=== PATIENT | female | born 1990 | race Two or more races ===

== ENCOUNTER 2017-01-22 12:43 | Inpatient (IN) | payer BC, MEDICAID ==
[~2017-01-22] VITALS: Ht 160 cm; Wt 101.8 kg
[~2017-01-22 12:43] MED LIST: ACET325T14 PO
[2017-01-22] MEDS ORDERED: OXYTOCIN 30U/ 0.9% NaCL 500ML 500 ML IV ONE (12:58)
[2017-01-22] MEDS ORDERED: FENTANYL PF 100 MCG/2ML IV PRN (13:00)
[2017-01-22] MEDS ORDERED: CALCIUM CARBONATE 500 MG TAB.CHEW PO PRN (13:00)
[2017-01-22 13:09] VITALS: BP 101/69
[2017-01-22] MEDS ORDERED: PLEASE ENTER HEIGHT AND WEIGHT MC SCH (13:30)
[2017-01-22] MEDS ORDERED: OXYTOCIN 30U/ 0.9% NaCL 500ML 500 ML ONE (14:59)
[2017-01-22] MEDS ORDERED: NEWBORN KIT ONE (14:59)
[2017-01-22] MEDS ORDERED: LIDOCAINE 1%, 20ML ONE (14:59)
[2017-01-22] MEDS ORDERED: MISOPROSTOL 200 MCG TABLET ONE (14:59)
[2017-01-22] MEDS ORDERED: FENTANYL PF 100 MCG/2ML ONE ×2 (17:07→22:57)
[2017-01-22] MEDS: FENTANYL PF 100 MCG/2ML IVPush PRN ×2 (17:09→23:00)
[2017-01-22] MEDS ORDERED: ZOLPIDEM 5MG TABLET ONE (21:54)
[2017-01-22] MEDS: ZOLPIDEM 5MG TABLET PO SCH (21:56)
[2017-01-23] MEDS: LACTATED RINGERS 1,000 ML IV SCH ×4 (02:46→20:58)
[2017-01-23] MEDS ORDERED: FENTANYL PF 100 MCG/2ML ONE ×3 (03:10→21:41)
[2017-01-23] MEDS: FENTANYL PF 100 MCG/2ML IVPush PRN ×2 (03:13→21:43)
[2017-01-23] MEDS ORDERED: OXYTOCIN 30U/ 0.9% NaCL 500ML 500 ML IV PRN (05:00)
[2017-01-23] MEDS ORDERED: FENTANYL/BUPIV./NS/PF 250 ML EPIDCONT ONE (09:08)
[2017-01-23] MEDS ORDERED: FENTANYL/BUPIV./NS/PF 250 ML EPIDCONT SCH (10:00)
[2017-01-23] MEDS ORDERED: LACTATED RINGERS 1,000 ML IVBOLUS PRN (10:00)
[2017-01-23] MEDS ORDERED: LACTATED RINGERS 1,000 ML IV SCH (10:00)
[2017-01-23] MEDS ORDERED: ONDANSETRON 2MG/ML, 2ML ONE (15:54)
[2017-01-23] MEDS ORDERED: ONDANSETRON 2MG/ML, 2ML IVPush PRN (16:00)
[2017-01-23] MEDS: D5%-LACTATED RINGERS 1,000 ML IV SCH ×2 (16:22→20:58)
[2017-01-23] MEDS: ZOLPIDEM 5MG TABLET PO SCH (21:00)
[2017-01-23] MEDS: OXYTOCIN 30U/ 0.9% NaCL 500ML 500 ML IV SCH (22:12)
[2017-01-23] MEDS ORDERED: MISOPROSTOL 200 MCG TABLET PR PRN (22:30)
[2017-01-23] MEDS ORDERED: OXYTOCIN 10 UNITS/ML, 1ML IM PRN (22:30)
[2017-01-23] MEDS ORDERED: ONDANSETRON 2MG/ML, 2ML IV PRN (22:30)
[2017-01-23] MEDS ORDERED: OXYcodone/APAP 5/325MG TABLET PO PRN (22:30)
[2017-01-23] MEDS ORDERED: ACETAMINOPHEN 325 MG TABLET PO PRN ×2 (22:30)
[2017-01-23] MEDS ORDERED: BISACODYL 10 MG SUPP PR PRN (22:30)
[2017-01-23] MEDS ORDERED: CALCIUM CARBONATE 500 MG TAB.CHEW PO PRN (22:30)
[2017-01-23] MEDS ORDERED: MAGNESIUM HYDROXIDE 8%, 30ML UDC PO PRN (22:30)
[2017-01-23] MEDS ORDERED: MEASLES,MUMPS&RUBELLA VACC/PF 0.5 ML SQ PRN (22:30)
[2017-01-23] MEDS ORDERED: GLYCERIN ADULT SUPP PR PRN (22:30)
[2017-01-23] MEDS ORDERED: METHYLERGONOVINE 0.2 MG/ML IM PRN (22:30)
[2017-01-23] MEDS ORDERED: DIPH,PERTUSS(ACELL),TET VAC/PF NC IM-VACC PRN (22:30)
[2017-01-24 00:35] VITALS: BP 108/61
[2017-01-24] MEDS ORDERED: IBUP800T PO (04:25)
[2017-01-24] MEDS ORDERED: OXYC-302 PO (04:29)
[2017-01-24 05:30] VITALS: BP 108/65
[2017-01-24] MEDS: IBUPROFEN 800 MG TABLET PO PRN ×2 (05:46→16:39)
[2017-01-24] MEDS ORDERED: PRENATAL VIT/IRON/FA 1 EACH TABLET ONE (07:45)
[2017-01-24] MEDS: DOCUSATE 100 MG CAPSULE PO PRN ×2 (07:56→22:26)
[2017-01-24] MEDS: PRENATAL VIT/IRON/FA 1 EACH TABLET PO SCH (07:56)
[2017-01-24 08:00] VITALS: BP 113/71
[2017-01-24] MEDS: OXYTOCIN 30U/ 0.9% NaCL 500ML 500 ML IV SCH ×2 (08:12→18:12)
[2017-01-24] MEDS: OXYcodone/APAP 5/325MG TABLET PO PRN ×2 (12:14→22:26)
[2017-01-24 16:35] VITALS: BP 101/65
[2017-01-24 20:45] VITALS: BP 113/75
[2017-01-24] MEDS: ZOLPIDEM 5MG TABLET PO SCH (21:00)
[2017-01-25] MEDS: OXYTOCIN 30U/ 0.9% NaCL 500ML 500 ML IV SCH ×2 (04:12→14:12)
[2017-01-25] MEDS: PRENATAL VIT/IRON/FA 1 EACH TABLET PO SCH (09:56)
[2017-01-25] MEDS: IBUPROFEN 800 MG TABLET PO PRN (09:56)
[2017-01-25] MEDS: DOCUSATE 100 MG CAPSULE PO PRN (09:56)
[2017-01-25 10:00] VITALS: BP 111/72
== END 2017-01-25 16:53 | disposition home or self-care (01) | DRG 775 ==
LOC: LDIP 12:43 → 2NW 01-24 00:20
PROVIDERS: ADMIT Obstetrics & Gynecology; ATTEND Obstetrics & Gynecology
PROC: 10E0XZZ Delivery of Products of Conception, External Approach (ICD-10-PCS; principal; 2017-01-23)
PROC: 00HU33Z Insertion of Infusion Device into Spinal Canal, Percutaneous Approach (ICD-10-PCS; 2017-01-23)
PROC: 3E0R3CZ (ICD-10-PCS; 2017-01-23)
PROC: 10907ZC Drainage of Amniotic Fluid, Therapeutic from Products of Conception, Via Natural or Artificial Opening (ICD-10-PCS; 2017-01-23)
DX: O41.03X0 Oligohydramnios, third trimester, not applicable or unspecified (principal); O99.52 Diseases of the respiratory system complicating childbirth; J45.909 Unspecified asthma, uncomplicated; O62.2 Other uterine inertia; Z37.0 Single live birth; Z3A.39 39 weeks gestation of pregnancy
CPT/HCPCS: 36415; 85025; 86850; 86900; J2405; J3010; J2590; J7120; J7121

== ENCOUNTER 2017-02-22 12:53 | Emergency (ER) | payer BC, MEDICAID ==
[~2017-02-22] VITALS: Ht 152.4 cm; Wt 94.8 kg
[~2017-02-22 12:53] MED LIST changes: +IBUP800T PO; +OXYC-302 PO
[2017-02-22 13:06] VITALS: BP 121/80
[2017-02-22] MEDS ORDERED: HYDROmorphone 1 MG/ML, 1ML ONE (15:29)
[2017-02-22] MEDS ORDERED: ONDANSETRON 2MG/ML, 2ML IVPush ONE (15:30)
[2017-02-22] MEDS ORDERED: HYDROmorphone 1 MG/ML, 1ML IVPush PRN (15:30)
[2017-02-22] MEDS ORDERED: ONDANSETRON 2MG/ML, 2ML ONE (15:30)
[2017-02-22 16:00] LABS: PATH.CAST-FLAG NOT PRESENT; SPERM-FLAG NOT PRESENT; SRC-FLAG NOT PRESENT; XTAL-FLAG NOT PRESENT; YLC-FLAG NOT PRESENT
[2017-02-22 16:01] LABS: ASPARTATE AMINO TRANSFERASE 76 U/L (15-37); BLOOD UREA NITROGEN 15 mg/dL (7-18)
[2017-02-22] MEDS ORDERED: PROPOFOL 10 MG/ML, 20ML IVPush ONE (16:30)
[2017-02-22] MEDS ORDERED: PROPOFOL 10 MG/ML, 20ML ONE (16:45)
== END 2017-02-22 19:00 | disposition home or self-care (01) ==
LOC: ED 14:56
DX: K43.9 Ventral hernia without obstruction or gangrene (principal); K42.9 Umbilical hernia without obstruction or gangrene; N30.00 Acute cystitis without hematuria
CPT/HCPCS: 36415; 74020; 80053; 81001; 83690; 84703; 85025; 87086; 96374; 96375; 99152; 99285; J1170; J2405; J2704

== ENCOUNTER 2017-03-15 06:15 | Observation (INO) | payer MEDICAID ==
[~2017-03-15] VITALS: Ht 160 cm; Wt 100.0 kg
[2017-03-15 06:44] VITALS: BP 106/68
[2017-03-15] MEDS ORDERED: LACTATED RINGERS 1,000 ML IV SCH ×2 (06:46→07:47)
[2017-03-15] MEDS ORDERED: BUPIVACAINE/PF-EPI 0.5% 1:200K ONE ×2 (07:25→09:12)
[2017-03-15] MEDS ORDERED: MIDAZOLAM 1 MG/ML, 2ML ONE (07:40)
[2017-03-15] MEDS ORDERED: FENTANYL PF 250 MCG/5ML ONE (07:40)
[2017-03-15] MEDS ORDERED: BUPIVACAINE/PF-EPI 0.5% 1:200K INFIL ONE (08:00)
[2017-03-15 08:02] LABS: HCG UR OBC PASS
[2017-03-15] MEDS ORDERED: KETOROLAC 30 MG/1 ML ONE (08:02)
[2017-03-15] MEDS ORDERED: PROPOFOL 10 MG/ML, 20ML ONE (08:02)
[2017-03-15] MEDS ORDERED: ROCURONIUM 10 MG/ML ONE (08:02)
[2017-03-15] MEDS ORDERED: CEFAZOLIN 1,000 MG ONE (08:02)
[2017-03-15] MEDS ORDERED: SUCCINYLCHOLINE 20 MG/ML, 10ML ONE (08:02)
[2017-03-15] MEDS ORDERED: ONDANSETRON 2MG/ML, 2ML ONE (08:02)
[2017-03-15] MEDS ORDERED: DEXAMETHASONE 4 MG/ML, 1ML ONE (08:02)
[2017-03-15] MEDS ORDERED: HYDROmorphone 1 MG/ML, 1ML IV PRN (08:30)
[2017-03-15] MEDS ORDERED: MEPERIDINE/PF 25MG/0.5ML IVPush PRN (08:30)
[2017-03-15] MEDS ORDERED: ACETAMINOPHEN 325 MG TABLET PO PRN (08:30)
[2017-03-15] MEDS ORDERED: PROMETHAZINE 25 MG/ML, 1ML IV PRN (08:30)
[2017-03-15] MEDS ORDERED: OXYcodone 5 MG/5 ML ORAL.SOL UDC PO PRN (08:30)
[2017-03-15] MEDS ORDERED: hydrALAzine 20 MG/ML, 1ML IV PRN (08:30)
[2017-03-15] MEDS ORDERED: ONDANSETRON 2MG/ML, 2ML IVPush PRN ×2 (08:30→09:30)
[2017-03-15] MEDS ORDERED: LABETALOL 5MG/ML, 20ML IV PRN (08:30)
[2017-03-15] MEDS ORDERED: ALBUTEROL SULFATE 2.5 MG/3 ML NPPB PRN (08:30)
[2017-03-15] MEDS ORDERED: MIDAZOLAM 1 MG/ML, 2ML IV PRN (08:30)
[2017-03-15] MEDS ORDERED: FENTANYL PF 100 MCG/2ML ONE ×2 (09:01→09:23)
[2017-03-15] MEDS: LACTATED RINGERS 1,000 ML IV SCH ×2 (09:09→19:09)
[2017-03-15] MEDS ORDERED: OXYcodone 5 MG/5 ML ORAL.SOL UDC ONE (09:23)
[2017-03-15] MEDS ORDERED: ACETAMINOPHEN 325 MG TABLET ONE (09:23)
[2017-03-15] MEDS ORDERED: ACETAMINOPHEN 650 MG/20.3 ML UDC ONE (09:23)
[2017-03-15] MEDS ORDERED: PROMETHAZINE 25 MG/ML, 1ML IM PRN (09:30)
[2017-03-15] MEDS: FENTANYL PF 100 MCG/2ML IV PRN ×2 (09:30→09:40)
[2017-03-15] MEDS ORDERED: MEPERIDINE/PF 25MG/0.5ML ONE (09:54)
[2017-03-15] MEDS ORDERED: MORPHINE SULFATE 4 MG/ML, 1ML ONE ×2 (11:30→12:26)
[2017-03-15] MEDS: morphine SULFATE 10 MG/ML, 1ML IVPush PRN ×3 (11:30→12:45)
[2017-03-15] MEDS ORDERED: DIAZEPAM 5 MG/ML, 2ML ONE (13:06)
[2017-03-15] MEDS ORDERED: OXYcodone/APAP 7.5/325MG TABLET ONE (13:29)
[2017-03-15] MEDS ORDERED: OXYcodone/APAP 7.5/325MG TABLET PO PRN (13:30)
[2017-03-15] MEDS ORDERED: ONDANSETRON 4 MG TABLET PO PRN ×2 (13:30→13:59)
[2017-03-15] MEDS ORDERED: DIAZEPAM 5 MG/ML, 2ML IV ONE (14:00)
[2017-03-15] MEDS ORDERED: HYDROmorphone 2 MG/ML, 1ML ONE (15:41)
[2017-03-15] MEDS: HYDROmorphone 1 MG/ML, 1ML IV PRN (17:42)
[2017-03-15 18:54] VITALS: BP 114/68
[2017-03-15] MEDS: IBUPROFEN 600 MG TABLET PO PRN (19:57)
[2017-03-15] MEDS: D5%-0.45NACL+KCL 20MEQ 1,000 ML IV SCH (19:57)
[2017-03-15] MEDS: OXYcodone/APAP 7.5/325MG TABLET PO PRN (19:57)
[2017-03-16 00:45] VITALS: BP 99/57
[2017-03-16] MEDS: OXYcodone/APAP 7.5/325MG TABLET PO PRN ×4 (01:08→19:07)
[2017-03-16] MEDS: IBUPROFEN 600 MG TABLET PO PRN ×3 (04:04→20:32)
[2017-03-16 04:19] VITALS: BP 100/55
[2017-03-16] MEDS: LACTATED RINGERS 1,000 ML IV SCH ×2 (05:09→15:09)
[2017-03-16] MEDS: D5%-0.45NACL+KCL 20MEQ 1,000 ML IV SCH ×2 (09:00→22:20)
[2017-03-16 09:04] VITALS: BP 103/58
[2017-03-16] MEDS: HYDROmorphone 1 MG/ML, 1ML IV PRN (09:09)
[2017-03-16 16:23] VITALS: BP 92/51
[2017-03-16 19:15] VITALS: BP 98/53
[2017-03-16 21:42] VITALS: BP 99/52
[2017-03-17] MEDS: OXYcodone/APAP 7.5/325MG TABLET PO PRN ×2 (01:07→09:17)
[2017-03-17] MEDS: LACTATED RINGERS 1,000 ML IV SCH ×2 (01:09→11:09)
[2017-03-17 03:38] VITALS: BP 100/56
[2017-03-17] MEDS: IBUPROFEN 600 MG TABLET PO PRN ×2 (03:50→12:57)
[2017-03-17 08:33] VITALS: BP 98/59
[2017-03-17] MEDS ORDERED: OXYC-223 PO (11:27)
[2017-03-17] MEDS ORDERED: ONDA4TAB7 PO (11:27)
[2017-03-17 13:02] VITALS: BP 91/52
== END 2017-03-17 13:10 | disposition home or self-care (01) ==
LOC: OUT 06:15 → 4NOR 17:20 → OUT 22:59 → 4NOR 23:00
PROVIDERS: ADMIT Surgery; ATTEND Surgery
DX: K43.9 Ventral hernia without obstruction or gangrene (principal); J45.909 Unspecified asthma, uncomplicated
CPT/HCPCS: 49560; 49568; 81025; 96374; 96375; 96376; C1781; G0378; J0330; J0690; J1100; J1170; J1885; J2175; J2250; J2270; J2405; J2704; J3010; J3360; J3480; J7120

== ENCOUNTER 2017-06-08 23:33 | Emergency (ER) | payer MEDICAID ==
[~2017-06-08] VITALS: Ht 160 cm; Wt 99.6 kg
[~2017-06-08 23:33] MED LIST changes: +IBUP-1223 PO; -IBUP800T PO; +ONDA4TAB7 PO; +OXYC-306 PO
[2017-06-09 01:29] LABS: HEMATOCRIT 39.4 % (34.6-47.8); HEMOGLOBIN 13.3 g/dL (11.7-16.4); WHITE BLOOD COUNT 9.7 x10^3/uL (3.4-10)
[2017-06-09 02:24] VITALS: BP 108/76
== END 2017-06-09 02:27 | disposition home or self-care (01) ==
LOC: ED 06-09 00:20
DX: O20.0 Threatened abortion (principal); Z87.891 Personal history of nicotine dependence; Z3A.14 14 weeks gestation of pregnancy
CPT/HCPCS: 36415; 76801; 81001; 84702; 85025; 86901; 99285

== ENCOUNTER 2017-12-06 05:43 | Inpatient (IN) | payer MEDICAID ==
[~2017-12-06] VITALS: Ht 160 cm; Wt 109.0 kg
[2017-12-06] MEDS ORDERED: D5%-LACTATED RINGERS 1,000 ML IV SCH (05:46)
[2017-12-06] MEDS ORDERED: OXYTOCIN 30U/ 0.9% NaCL 500ML 500 ML IV ONE (05:46)
[2017-12-06] MEDS ORDERED: OXYTOCIN 30U/ 0.9% NaCL 500ML 500 ML IV PRN (05:46)
[2017-12-06] MEDS ORDERED: FENTANYL PF 100 MCG/2ML IVPush PRN (06:00)
[2017-12-06] MEDS ORDERED: FENTANYL PF 100 MCG/2ML IV PRN (06:00)
[2017-12-06] MEDS ORDERED: ONDANSETRON 2MG/ML, 2ML IVPush PRN (06:00)
[2017-12-06] MEDS ORDERED: CALCIUM CARBONATE 500 MG TAB.CHEW PO PRN ×2 (06:00→08:00)
[2017-12-06 06:08] VITALS: BP 115/59
[2017-12-06 06:10] LABS: BASOPHILS # (AUTO) 0.03 x10^3/uL (0-0.1); BASOPHILS % (AUTO) 0 % (0-1); EOSINOPHILS # (AUTO) 0.05 x10^3/uL (0-0.4); EOSINOPHILS % (AUTO) 1 % (1-7); LYMPHOCYTES # (AUTO) 1.63 x10^3/uL (1-3.4); LYMPHOCYTES % (AUTO) 21 % (22-44); MD NO; MEAN CORPUSCULAR HEMOGLOBIN 26.2 pg (27.0-34.8); MEAN CORPUSCULAR VOLUME 79.4 fL (80-100); MEAN PLATELET VOLUME 9.3 fL (7.4-10.4); MONOCYTES # (AUTO) 0.47 x10^3/uL (0.2-0.8); MONOCYTES % (AUTO) 6 % (2-9); NEUTROPHILS # (AUTO) 5.63 x10^3/uL (1.8-6.8); NEUTROPHILS % (AUTO) 72 % (42-75); PLATELET COUNT 267 x10^3/uL (130-400); RED BLOOD COUNT 4.26 x10^6/uL (3.82-5.3); RED CELL DISTRIBUTION WIDTH 15.4 % (9.6-15.2)
[2017-12-06] MEDS: LACTATED RINGERS 1,000 ML IV SCH ×3 (06:19→09:31)
[2017-12-06] MEDS ORDERED: OXYTOCIN 30U/ 0.9% NaCL 500ML 500 ML ONE ×2 (06:24→17:09)
[2017-12-06] MEDS ORDERED: MISOPROSTOL 200 MCG TABLET ONE (06:25)
[2017-12-06] MEDS ORDERED: LIDOCAINE-MPF 1%, 5ML ONE (06:25)
[2017-12-06] MEDS ORDERED: NEWBORN KIT ONE (06:26)
[2017-12-06] MEDS: OXYTOCIN 30U/ 0.9% NaCL 500ML 500 ML IV SCH ×3 (07:59→23:58)
[2017-12-06] MEDS ORDERED: ONDANSETRON 2MG/ML, 2ML IV PRN (08:00)
[2017-12-06] MEDS ORDERED: MEASLES,MUMPS&RUBELLA VACC/PF 0.5 ML SQ PRN (08:00)
[2017-12-06] MEDS ORDERED: ACETAMINOPHEN 325 MG TABLET PO PRN ×2 (08:00)
[2017-12-06] MEDS ORDERED: MAGNESIUM HYDROXIDE 8%, 30ML UDC PO PRN (08:00)
[2017-12-06] MEDS ORDERED: OXYcodone/APAP 5/325MG TABLET PO PRN (08:00)
[2017-12-06] MEDS ORDERED: MISOPROSTOL 200 MCG TABLET PR PRN (08:00)
[2017-12-06] MEDS: PRENATAL VIT/IRON/FA 1 EACH TABLET PO SCH (09:00)
[2017-12-06] MEDS ORDERED: BUPIVACAINE 0.25% ONE (09:29)
[2017-12-06] MEDS ORDERED: FENTANYL/BUPIV./NS/PF 250 ML EPIDCONT ONE (09:30)
[2017-12-06] MEDS ORDERED: FENTANYL/BUPIV./NS/PF 250 ML EPIDCONT SCH (09:53)
[2017-12-06] MEDS ORDERED: LACTATED RINGERS 1,000 ML IV SCH (09:53)
[2017-12-06] MEDS ORDERED: EPHEDRINE 50 MG/ML, 1ML IVPush PRN (10:00)
[2017-12-06] MEDS ORDERED: LACTATED RINGERS 1,000 ML IVBOLUS PRN (10:00)
[2017-12-06] MEDS ORDERED: IBUPROFEN 600 MG TABLET ONE (19:22)
[2017-12-06] MEDS: IBUPROFEN 600 MG TABLET PO PRN (19:23)
[2017-12-06 19:50] VITALS: BP 102/63
[2017-12-06] MEDS: DOCUSATE 100 MG CAPSULE PO PRN (21:18)
[2017-12-06] MEDS: OXYcodone/APAP 5/325MG TABLET PO PRN (21:19)
[2017-12-07 00:20] VITALS: BP 108/69
[2017-12-07] MEDS: IBUPROFEN 600 MG TABLET PO PRN ×2 (01:33→07:32)
[2017-12-07] MEDS: OXYcodone/APAP 5/325MG TABLET PO PRN ×3 (01:33→12:47)
[2017-12-07 01:34] LABS: BASOPHILS # (AUTO) 0.04 x10^3/uL (0-0.1); BASOPHILS % (AUTO) 1 % (0-1); EOSINOPHILS # (AUTO) 0.07 x10^3/uL (0-0.4); EOSINOPHILS % (AUTO) 1 % (1-7); LYMPHOCYTES # (AUTO) 1.82 x10^3/uL (1-3.4); LYMPHOCYTES % (AUTO) 21 % (22-44); MD NO; MEAN CORPUSCULAR HEMOGLOBIN 25.9 pg (27.0-34.8); MEAN CORPUSCULAR VOLUME 78.6 fL (80-100); MEAN PLATELET VOLUME 9.2 fL (7.4-10.4); MONOCYTES # (AUTO) 0.41 x10^3/uL (0.2-0.8); MONOCYTES % (AUTO) 5 % (2-9); NEUTROPHILS # (AUTO) 6.42 x10^3/uL (1.8-6.8); NEUTROPHILS % (AUTO) 73 % (42-75); PLATELET COUNT 224 x10^3/uL (130-400); RED BLOOD COUNT 3.84 x10^6/uL (3.82-5.3); RED CELL DISTRIBUTION WIDTH 15.5 % (9.6-15.2)
[2017-12-07] MEDS: DOCUSATE 100 MG CAPSULE PO PRN (07:32)
[2017-12-07] MEDS: PRENATAL VIT/IRON/FA 1 EACH TABLET PO SCH (07:32)
[2017-12-07 09:15] VITALS: BP 110/62
[2017-12-07 12:00] VITALS: BP 117/67
[2017-12-07] MEDS ORDERED: KETOROLAC 30 MG/1 ML IM ONE (13:00)
[2017-12-07] MEDS ORDERED: KETOROLAC 30 MG/1 ML ONE (13:06)
[2017-12-07] MEDS ORDERED: IBUP-1222 PO (16:30)
== END 2017-12-07 17:59 | disposition home or self-care (01) | DRG 775 ==
LOC: LDIP 05:43 → 2NW 19:39
PROVIDERS: ADMIT Obstetrics & Gynecology; ATTEND Obstetrics & Gynecology
PROC: 10E0XZZ Delivery of Products of Conception, External Approach (ICD-10-PCS; principal; 2017-12-06)
PROC: 3E0R3BZ Introduction of Anesthetic Agent into Spinal Canal, Percutaneous Approach (ICD-10-PCS; 2017-12-06)
PROC: 00HU33Z Insertion of Infusion Device into Spinal Canal, Percutaneous Approach (ICD-10-PCS; 2017-12-06)
PROC: 10907ZC Drainage of Amniotic Fluid, Therapeutic from Products of Conception, Via Natural or Artificial Opening (ICD-10-PCS; 2017-12-06)
DX: O80 Encounter for full-term uncomplicated delivery (principal); Z37.0 Single live birth; Z3A.39 39 weeks gestation of pregnancy
CPT/HCPCS: 36415; 85025; 86850; 86900; J1885; J2590; J7120

== ENCOUNTER 2018-10-06 01:12 | Emergency (ER) | payer MEDICAID ==
[~2018-10-06] VITALS: Ht 160 cm; Wt 107.2 kg
[~2018-10-06 01:12] MED LIST changes: +IBUP-1222 PO
--- NOTE | 2018-10-06 01:29 | NUR ---
pt presented with c/o n/v since 2199 today, also c/o abd luq and mid back pain, lnmp-09/26/18. denies temp or injury. monitors applied, sidrails up x2, provided pt with warm blanket, call light within reach. awaiting erp for eval and orders
[2018-10-06] MEDS ORDERED: ONDANSETRON 2MG/ML, 2ML ONE (01:41)
[2018-10-06] MEDS ORDERED: MORPHINE SULFATE 4 MG/ML, 1ML ONE ×2 (01:41→03:10)
--- NOTE | 2018-10-06 01:47 | NUR ---
PT TO XRAY. URINE SAMPLE SENT.
[2018-10-06] MEDS: MORPHINE SULFATE 4 MG/ML, 1ML IVPush PRN ×2 (01:55→03:12)
--- NOTE | 2018-10-06 01:57 | NUR ---
IV SITE STARTED, LABS DRAWN AND SENT, PT MEDICATED PER MAR
[2018-10-06 02:00] LABS: HCG UR SG 1.019 (1.003-1.030); MICROSCOPIC NOT IND
[2018-10-06] MEDS ORDERED: ONDANSETRON 2MG/ML, 2ML IVPush ONE (02:00)
[2018-10-06 02:05] LABS: CULTURE INDICATED? NO
[2018-10-06 02:14] LABS: BASOPHILS # (AUTO) 0.04 x10^3/uL (0-0.1); BASOPHILS % (AUTO) 1 % (0-1); EOSINOPHILS # (AUTO) 0.11 x10^3/uL (0-0.4); EOSINOPHILS % (AUTO) 1 % (1-7); LYMPHOCYTES # (AUTO) 2.49 x10^3/uL (1-3.4); LYMPHOCYTES % (AUTO) 28 % (22-44); MD NO; MEAN CORPUSCULAR HEMOGLOBIN 27.9 pg (27.0-34.8); MEAN CORPUSCULAR HGB CONC 33.6 g/dL (32.4-35.8); MEAN CORPUSCULAR VOLUME 83.1 fL (80-100); MEAN PLATELET VOLUME 9.2 fL (7.4-10.4); MONOCYTES # (AUTO) 0.59 x10^3/uL (0.2-0.8); MONOCYTES % (AUTO) 7 % (2-9); NEUTROPHILS % (AUTO) 64 % (42-75); PLATELET COUNT 285 x10^3/uL (130-400); RED BLOOD COUNT 4.91 x10^6/uL (3.82-5.3)
[2018-10-06 02:18] LABS: ALANINE AMINOTRANSFERASE 22 U/L (12-78); ALBUMIN 3.6 g/dL (3.4-5.0); ANION GAP 7 mmol/L (5-15); CALCIUM 8.9 mg/dL (8.5-10.1); CHLORIDE 108 mmol/L (98-107); CREATININE 0.78 mg/dL (0.55-1.02)
[2018-10-06 02:20] LABS: ALKALINE PHOSPHATASE 92 U/L (45-117); BILIRUBIN,TOTAL 0.3 mg/dL (0.2-1.0); TOTAL PROTEIN 7.5 g/dL (6.4-8.2)
--- NOTE | 2018-10-06 02:36 | NUR ---
ADDITIONAL ORDER RECEIVED FOR CT
--- NOTE | 2018-10-06 02:37 | NUR ---
PT TO CT
[2018-10-06 03:14] VITALS: BP 104/59
--- NOTE | 2018-10-06 03:14 | NUR ---
PT MEDICATED FOR PAIN PER PRN MAR ORDER
== END 2018-10-06 03:40 | disposition home or self-care (01) ==
LOC: ED 01:39
DX: K80.20 Calculus of gallbladder without cholecystitis without obstruction (principal); R11.2 Nausea with vomiting, unspecified; M54.5 Low back pain; Z87.891 Personal history of nicotine dependence
CPT/HCPCS: 36415; 74021; 74176; 80053; 81003; 81025; 83690; 85025; 86677; 96374; 96375; 96376; 99284; J2405

== ENCOUNTER 2018-10-16 14:22 | Outpatient (CLI) | payer MEDICAID ==
[2018-10-16] MEDS ORDERED: ONDA4TAB7 PO (15:26)
[2018-10-16] MEDS ORDERED: FAMO-79 PO (15:26)
== END 2018-10-16 23:59 | disposition home or self-care (01) ==
LOC: STAR 14:22
PROVIDERS: ATTEND Surgery
DX: Z02.9 Encounter for administrative examinations, unspecified (principal)

== ENCOUNTER 2018-10-20 10:54 | Day surgery (SDC) | payer MEDICAID ==
[~2018-10-20] VITALS: Ht 160 cm; Wt 102.3 kg
[~2018-10-20 10:54] MED LIST changes: +BUPIVACAINE/PF-EPI 0.5% 1:200K ONE; +FAMO-79 PO
[2018-10-20] MEDS ORDERED: BUPIVACAINE/PF-EPI 0.5% 1:200K ONE (11:29)
[2018-10-20] MEDS ORDERED: LACTATED RINGERS 1,000 ML IV SCH (11:31)
[2018-10-20 11:32] VITALS: BP 117/80
[2018-10-20] MEDS ORDERED: SCOPOLAMINE PATCH, 1.5MG PATCH.TD72 TD ONE ×2 (11:48)
[2018-10-20] MEDS ORDERED: MIDAZOLAM 1 MG/ML, 2ML ONE (11:55)
[2018-10-20] MEDS ORDERED: FENTANYL PF 250 MCG/5ML ONE (11:55)
[2018-10-20] MEDS ORDERED: PROPOFOL 10 MG/ML, 20ML ONE (11:56)
[2018-10-20] MEDS ORDERED: LIDOCAINE-MPF 2% ,5ML ONE (11:56)
[2018-10-20] MEDS ORDERED: ROCURONIUM 10MG/ML,5ML ONE (11:56)
[2018-10-20] MEDS ORDERED: ONDANSETRON 2MG/ML, 2ML ONE ×2 (11:57)
[2018-10-20] MEDS ORDERED: CEFOTETAN PMX 2GM/50ML 50 ML ONE (11:57)
[2018-10-20] MEDS ORDERED: DEXAMETHASONE 4 MG/ML, 1ML ONE (11:59)
[2018-10-20] MEDS ORDERED: KETOROLAC 30 MG/1 ML ONE (11:59)
[2018-10-20 12:14] LABS: HCG UR SG 1.027 (1.003-1.030)
[2018-10-20] MEDS ORDERED: GLYCOPYRROLATE 0.2MG/1ML, 5ML ONE (12:24)
[2018-10-20] MEDS ORDERED: NEOSTIGMINE 1 MG/ML, 10ML ONE (12:24)
[2018-10-20] MEDS ORDERED: PROMETHAZINE 25 MG/ML, 1ML IV PRN (12:30)
[2018-10-20] MEDS ORDERED: HALOPERIDOL 5 MG/ML IV PRN (12:30)
[2018-10-20] MEDS ORDERED: LORazepam 2 MG/ML, 1ML IVPush PRN (12:30)
[2018-10-20] MEDS ORDERED: hydrALAzine 20 MG/ML, 1ML IV PRN (12:30)
[2018-10-20] MEDS ORDERED: ACETAMINOPHEN 325 MG TABLET PO PRN (12:30)
[2018-10-20] MEDS ORDERED: MEPERIDINE/PF 25MG/0.5ML IVPush PRN (12:30)
[2018-10-20] MEDS ORDERED: HYDROmorphone 2 MG/ML, 1ML IVPush PRN (12:30)
[2018-10-20] MEDS ORDERED: OXYcodone 5 MG/5 ML ORAL.SOL UDC PO PRN ×2 (12:30→13:00)
[2018-10-20] MEDS ORDERED: MEPERIDINE/PF 50 MG/ML ONE (12:45)
[2018-10-20] MEDS ORDERED: FENTANYL PF 100 MCG/2ML ONE (13:00)
[2018-10-20] MEDS ORDERED: OXYcodone 5 MG/5 ML ORAL.SOL UDC ONE (13:00)
[2018-10-20] MEDS: FENTANYL PF 100 MCG/2ML IV PRN ×3 (13:10→13:46)
[2018-10-20] MEDS ORDERED: LORazepam 2 MG/ML, 1ML ONE (13:40)
== END 2018-10-20 19:05 | disposition home or self-care (01) ==
LOC: OUT 10:54
PROVIDERS: ATTEND Surgery
DX: K80.10 Calculus of gallbladder with chronic cholecystitis without obstruction (principal); E66.01 Morbid (severe) obesity due to excess calories; Z68.41 Body mass index [BMI] 40.0-44.9, adult
CPT/HCPCS: 47562; 81025; 88304; J1100; J1885; J2060; J2175; J2250; J2405; J2704; J2710; J3010; J3490